=== PATIENT | female | born 1950 | race Caucasian/White ===

== ENCOUNTER 2017-05-21 16:20 | Inpatient (IN) ==
[2017-05-21] MEDS ORDERED: SODIUM CHLORIDE 0.9% 500 ML IV STA (16:54)
[2017-05-21] MEDS ORDERED: KETOROLAC 30 MG/1 ML VIAL IV STA (16:55)
[2017-05-21] MEDS ORDERED: KETOROLAC 30 MG/1 ML VIAL ONE (17:23)
[2017-05-21 17:54] LABS: Basophils # 0.1 10*3/uL (0.0-0.2); Basophils % 0.4 % (0.0-0.8); Eosinophils # 0.1 10*3/uL (0.0-0.87); Eosinophils % 0.4 % (0.00-10.9); Hematocrit 37.8 VOL% (35.7-47.0); Hemoglobin 12.6 GM/DL (12.0-16.0); Immature Granulocytes % 0.6 %; Immature Granulocytes Absolute 0.08 #; Lymphocytes # 2.1 10*3/uL (1.4-4.0); Lymphocytes % 14.5 % (21.3-54.2); Mean Corpuscular HGB Conc 33.3 GM/DL (32-36); Mean Corpuscular Hemoglobin 30 PG (27-34); Mean Corpuscular Volume 89.6 FL (87-102); Mean Platelet Volume 8.2 FL (9.6-12.0); Monocytes % 7.1 % (1.7-12.7); Platelet Count 395 T/CUMM (130-400); Red Blood Count 4.22 MC/CUMM (3.8-5.5); Red Cell Distribution Width 12.7 % (9.3-17.3); White Blood Count 14.2 T/CUMM (4-12)
[2017-05-21 18:10] LABS: Apearance,Urine CLOUDY (Clear); Bilirubin,Urine Negative (Negative); Blood, Urine Large mg/dL (Negative); Glucose,Urine (UA) Negative (Negative); Ketones,Urine 20 mg/dL (Negative); Nitrite,Urine Negative (Negative); Protein,Urine Negative; RBC,Urine 40 /HPF (0-4); Squamous Epithelial Cell,Urine Occasional /HPF (0-10); Urine Color Yellow (Yellow); Urine Specific Gravity 1.006 (1.001-1.035); Urine Urobilinogen < 2.0 EU/DL (0.2-1.0); WBC,Urine 316 /HPF (0-6)
[2017-05-21 18:11] LABS: PT Patient Result 10.4 SECS; Partial Thromboplastin Time 26.8 SECS (0-40)
[2017-05-21 18:13] LABS: Alanine Aminotransferase 18 U/L (13-56); Albumin 3.3 G/DL (3.4-5.0); Alkaline Phosphatase 108 U/L (45-117); Aspartate Amino Transferase 10 U/L (0-37); Bilirubin,Total < 0.39 MG/DL (0.2-1.0); Blood Urea Nitrogen 16 MG/DL (7-18); Calcium 9.5 MG/DL (8.5-10.1); Glucose 96 MG/DL (74-106); Osmolality,Calculated 279.4 MOS/KG (273-304); Potassium 3.3 MMOL/L (3.5-5.1); Sodium 140 MMOL/L (136-145); Total Protein 7.4 G/DL (6.4-8.3)
[2017-05-21 18:14] LABS: Barbiturates Screen,Urine Negative (Negative); Benzodiazepines Screen,Urine Negative (Negative); Cannabinoid Screen,Urine Negative (Negative); Opiate Screen,Urine Negative (Negative); Phencyclidine Screen,Urine Negative (Negative)
[2017-05-21] MEDS ORDERED: LEVOFLOXACIN INJ 750 MG in PREMIX 1 EACH IV STA (18:31)
[2017-05-21] MEDS ORDERED: PHENAZOPYRIDINE 95 MG TABLET PO STA (18:32)
[2017-05-21] MEDS ORDERED: POTASSIUM BICARB EFFERVESCENT 25 MEQ TABLET PO ONE ×2 (18:34→20:43)
[2017-05-21] MEDS ORDERED: PHENAZOPYRIDINE 95 MG TABLET ONE (19:04)
[2017-05-21] MEDS ORDERED: LEVOFLOXACIN INJ 150 ML IV ONE (19:04)
[2017-05-21] MEDS ORDERED: ONDANSETRON 4 MG/2 ML VIAL ONE (19:06)
[2017-05-21] MEDS ORDERED: ONDANSETRON 4 MG/2 ML VIAL IV STA (19:09)
[2017-05-21] MEDS ORDERED: metroNIDAZOLE INJ 500 MG in PREMIX 1 EACH IV STA (20:58)
[2017-05-21] MEDS ORDERED: metroNIDAZOLE 500 MG/100 ML PREMIX IV ONE (21:10)
[2017-05-21] MEDS ORDERED: MORPHINE 2 MG/1 ML SYRINGE IV PRN (21:22)
[2017-05-21] MEDS ORDERED: MAGNESIUM SULF RIDER 2 GM in PREMIX 1 EACH IV PRN (21:22)
[2017-05-21] MEDS ORDERED: MAGNESIUM SULF RIDER 4 GM in PREMIX 1 EACH IV PRN (21:22)
[2017-05-21] MEDS ORDERED: SODIUM CHLORIDE 0.9% 1,000 ML IV SCH (21:30)
[2017-05-21] MEDS: NICOTINE 14 MG/24 HR PATCH TRANSDERM SCH (23:21)
[2017-05-21] MEDS: CIPROFLOXACIN INJ 400 MG in PREMIX 1 EACH IV SCH (23:22)
[2017-05-21] MEDS: DEXT 5% NACL 0.45% KCL 10 MEQ 10 MEQ/1,000 ML BAG IV SCH (23:23)
[2017-05-22 06:55] LABS: Basophils % 0.3 % (0.0-0.8); Eosinophils # 0.1 10*3/uL (0.0-0.87); Eosinophils % 1.1 % (0.00-10.9); Hematocrit 34.4 VOL% (35.7-47.0); Hemoglobin 11.6 GM/DL (12.0-16.0); Immature Granulocytes % 0.5 %; Immature Granulocytes Absolute 0.05 #; Lymphocytes # 1.4 10*3/uL (1.4-4.0); Lymphocytes % 15.4 % (21.3-54.2); Mean Corpuscular HGB Conc 33.7 GM/DL (32-36); Mean Corpuscular Hemoglobin 30 PG (27-34); Mean Corpuscular Volume 90.1 FL (87-102); Mean Platelet Volume 8.7 FL (9.6-12.0); Monocytes # 0.9 10*3/uL (0.11-0.8); Monocytes % 9.3 % (1.7-12.7); Neutrophils # 6.8 10*3/uL (1.4-7.4); Neutrophils % 73.4 % (38.7-73.9); Platelet Count 382 T/CUMM (130-400); Red Blood Count 3.82 MC/CUMM (3.8-5.5); White Blood Count 9.3 T/CUMM (4-12)
[2017-05-22] MEDS: metroNIDAZOLE INJ 500 MG in PREMIX 1 EACH IV SCH ×3 (06:59→23:32)
[2017-05-22 07:21] LABS: Calcium 8.7 MG/DL (8.5-10.1); Osmolality,Calculated 285.8 MOS/KG (273-304)
[2017-05-22] MEDS: DEXT 5% NACL 0.45% KCL 10 MEQ 10 MEQ/1,000 ML BAG IV SCH ×2 (08:32→14:08)
[2017-05-22] MEDS: CIPROFLOXACIN INJ 400 MG in PREMIX 1 EACH IV SCH ×2 (08:35→20:40)
[2017-05-22] MEDS: ONDANSETRON 4 MG/2 ML VIAL IV PRN (08:40)
[2017-05-22] MEDS: NICOTINE 14 MG/24 HR PATCH TRANSDERM SCH (08:42)
[2017-05-22] MEDS ORDERED: KETOROLAC 15 MG/1 ML VIAL IV PRN (13:32)
[2017-05-22] MEDS ORDERED: HYDROmorphone 2 MG/1 ML VIAL IV PRN ×2 (13:32)
[2017-05-22] MEDS ORDERED: ALUMINUM/MAGNES/SIMETH MAX STR 30 ML UDCUP PO PRN (18:48)
[2017-05-23] MEDS: ONDANSETRON 4 MG/2 ML VIAL IV PRN (02:21)
[2017-05-23] MEDS: DEXT 5% NACL 0.45% KCL 10 MEQ 10 MEQ/1,000 ML BAG IV SCH ×3 (02:22→13:05)
[2017-05-23] MEDS: metroNIDAZOLE INJ 500 MG in PREMIX 1 EACH IV SCH ×3 (05:43→22:33)
[2017-05-23] MEDS: CIPROFLOXACIN INJ 400 MG in PREMIX 1 EACH IV SCH ×2 (08:32→20:36)
[2017-05-23] MEDS: NICOTINE 14 MG/24 HR PATCH TRANSDERM SCH (08:32)
[2017-05-23] MEDS: NYSTATIN 500,000 UNIT/5 ML UDCUP SWISH/SWAL SCH ×3 (12:25→20:36)
[2017-05-23] MEDS: LACTOBACILLUS ACIDOPHILUS/BULGARICUS CAPLET PO SCH (20:36)
[2017-05-23] MEDS ORDERED: diphenhydrAMINE 50 MG/1 ML VIAL IV PRN (22:58)
[2017-05-24] MEDS: metroNIDAZOLE INJ 500 MG in PREMIX 1 EACH IV SCH ×3 (06:11→23:20)
[2017-05-24] MEDS: DEXT 5% NACL 0.45% KCL 10 MEQ 10 MEQ/1,000 ML BAG IV SCH ×4 (06:13→20:47)
[2017-05-24] MEDS: CIPROFLOXACIN INJ 400 MG in PREMIX 1 EACH IV SCH ×2 (09:04→20:50)
[2017-05-24] MEDS: NYSTATIN 500,000 UNIT/5 ML UDCUP SWISH/SWAL SCH ×4 (09:05→20:49)
[2017-05-24] MEDS: NICOTINE 14 MG/24 HR PATCH TRANSDERM SCH (09:05)
[2017-05-24] MEDS: LACTOBACILLUS ACIDOPHILUS/BULGARICUS CAPLET PO SCH ×2 (09:05→20:49)
[2017-05-24] MEDS: PANTOPRAZOLE 40 MG TABLET PO SCH (09:05)
[2017-05-24] MEDS: ONDANSETRON 4 MG/2 ML VIAL IV PRN (15:01)
[2017-05-25 05:42] LABS: Basophils # 0.1 10*3/uL (0.0-0.2); Basophils % 0.6 % (0.0-0.8); Eosinophils # 0.1 10*3/uL (0.0-0.87); Eosinophils % 0.8 % (0.00-10.9); Hematocrit 29.9 VOL% (35.7-47.0); Hemoglobin 9.7 GM/DL (12.0-16.0); Immature Granulocytes % 0.5 %; Immature Granulocytes Absolute 0.04 #; Lymphocytes # 1.8 10*3/uL (1.4-4.0); Lymphocytes % 21.1 % (21.3-54.2); Mean Corpuscular HGB Conc 32.4 GM/DL (32-36); Mean Corpuscular Hemoglobin 30 PG (27-34); Mean Corpuscular Volume 90.9 FL (87-102); Mean Platelet Volume 8.7 FL (9.6-12.0); Monocytes # 0.8 10*3/uL (0.11-0.8); Monocytes % 9.3 % (1.7-12.7); Neutrophils # 5.7 10*3/uL (1.4-7.4); Neutrophils % 67.7 % (38.7-73.9); Platelet Count 327 T/CUMM (130-400); Red Blood Count 3.29 MC/CUMM (3.8-5.5); Red Cell Distribution Width 12.7 % (9.3-17.3); White Blood Count 8.4 T/CUMM (4-12)
[2017-05-25 06:13] LABS: Calcium 7.9 MG/DL (8.5-10.1); Magnesium 2.1 MG/DL (1.8-2.4); Osmolality,Calculated 285.8 MOS/KG (273-304); Potassium 3.6 MMOL/L (3.5-5.1)
[2017-05-25] MEDS: metroNIDAZOLE INJ 500 MG in PREMIX 1 EACH IV SCH (06:14)
[2017-05-25] MEDS: DEXT 5% NACL 0.45% KCL 10 MEQ 10 MEQ/1,000 ML BAG IV SCH (07:26)
[2017-05-25] MEDS: CIPROFLOXACIN INJ 400 MG in PREMIX 1 EACH IV SCH (10:25)
[2017-05-25] MEDS: PANTOPRAZOLE 40 MG TABLET PO SCH (10:26)
[2017-05-25] MEDS: NICOTINE 14 MG/24 HR PATCH TRANSDERM SCH (10:26)
[2017-05-25] MEDS: NYSTATIN 500,000 UNIT/5 ML UDCUP SWISH/SWAL SCH ×4 (10:26→21:09)
[2017-05-25] MEDS: LACTOBACILLUS ACIDOPHILUS/BULGARICUS CAPLET PO SCH ×2 (10:26→21:09)
[2017-05-25] MEDS ORDERED: oxyCODONE/ACETAMINOPHEN 5-325 MG TABLET PO PRN (10:58)
[2017-05-25] MEDS: metroNIDAZOLE 500 MG TABLET PO SCH ×2 (14:43→21:09)
[2017-05-25] MEDS: DOCUSATE SODIUM 100 MG CAPSULE PO SCH ×2 (15:13→21:09)
[2017-05-25 16:37] LABS: Apearance,Urine Slightly Hazy (Clear); Bacteria,Urine Occasional /HPF (Few); Bilirubin,Urine Negative (Negative); Blood, Urine Moderate mg/dL (Negative); Glucose,Urine (UA) Negative (Negative); Ketones,Urine Negative (Negative); Nitrite,Urine Negative (Negative); Protein,Urine Negative; RBC,Urine 9 /HPF (0-4); Squamous Epithelial Cell,Urine Occasional /HPF (0-10); Urine Color Yellow (Yellow); Urine Specific Gravity 1.004 (1.001-1.035); Urine Urobilinogen < 2.0 EU/DL (0.2-1.0); WBC,Urine 170 /HPF (0-6)
[2017-05-25] MEDS ORDERED: PRAVASTATIN 40 MG TABLET PO SCH (21:00)
[2017-05-25] MEDS: CIPROFLOXACIN 500 MG TABLET PO SCH (21:11)
[2017-05-26] MEDS: metroNIDAZOLE 500 MG TABLET PO SCH ×2 (08:33→15:20)
[2017-05-26] MEDS: NYSTATIN 500,000 UNIT/5 ML UDCUP SWISH/SWAL SCH ×2 (08:33→15:20)
[2017-05-26] MEDS: CIPROFLOXACIN 500 MG TABLET PO SCH (08:33)
[2017-05-26] MEDS: NICOTINE 14 MG/24 HR PATCH TRANSDERM SCH (08:33)
[2017-05-26] MEDS: PANTOPRAZOLE 40 MG TABLET PO SCH (08:33)
[2017-05-26] MEDS: DOCUSATE SODIUM 100 MG CAPSULE PO SCH (08:33)
[2017-05-26] MEDS: LACTOBACILLUS ACIDOPHILUS/BULGARICUS CAPLET PO SCH (08:33)
[2017-05-26 11:05] VITALS: BP 140/68
== END 2017-05-26 15:57 | disposition home or self-care (01) | DRG 392 ==
LOC: N.ED 16:20 → N.EDINP 21:26 → N.5E 21:41
PROVIDERS: ADMIT Hospitalist; ATTEND Hospitalist

== ENCOUNTER 2017-07-01 05:55 | Inpatient (IN) ==
[2017-07-01] MEDS ORDERED: cefOXitin 2,000 MG in SYRINGE 1 EACH IV ONE (06:00)
[2017-07-01] MEDS ORDERED: ALVIMOPAN 12 MG CAPSULE PO ONE (06:00)
[2017-07-01] MEDS ORDERED: ERTAPENEM 1,000 MG in SODIUM CHLORIDE 0.9% 50 ML IV ONE (06:00)
[2017-07-01] MEDS ORDERED: ERTAPENEM 1,000 MG VIAL ONE (06:03)
[2017-07-01] MEDS ORDERED: ALVIMOPAN 12 MG CAPSULE ONE ×2 (06:03→06:04)
[2017-07-01] MEDS ORDERED: SCOPOLAMINE 1.5 MG PATCH TRANSDERM ONE ×2 (06:30→06:32)
[2017-07-01] MEDS ORDERED: LACTATED RINGERS 1,000 ML IV SCH (07:00)
[2017-07-01] MEDS ORDERED: TISSUE ADHESIVE 1 EACH APPLICATOR TOP ONE (11:31)
[2017-07-01] MEDS ORDERED: fentaNYL 100 MCG/2 ML VIAL ONE (12:03)
[2017-07-01] MEDS ORDERED: PROPOFOL 200 MG/20 ML VIAL IV ONE (12:03)
[2017-07-01] MEDS ORDERED: SEVOFLURANE 1 UNIT/15 MINUTE INH ONE (12:03)
[2017-07-01] MEDS ORDERED: ONDANSETRON 4 MG/2 ML VIAL ONE (12:04)
[2017-07-01] MEDS ORDERED: GLYCOPYRROLATE 0.4 MG/2 ML VIAL ONE (12:04)
[2017-07-01] MEDS ORDERED: MIDAZOLAM 2 MG/2 ML VIAL ONE (12:04)
[2017-07-01] MEDS ORDERED: NEOSTIGMINE 10 MG/10 ML VIAL ONE (12:04)
[2017-07-01] MEDS ORDERED: KETOROLAC 30 MG/1 ML VIAL ONE (12:04)
[2017-07-01] MEDS ORDERED: DEXAMETHASONE 10 MG/1 ML VIAL ONE (12:04)
[2017-07-01] MEDS ORDERED: ROCURONIUM 100 MG/10 ML VIAL IV ONE (12:05)
[2017-07-01] MEDS ORDERED: ACETAMINOPHEN 1,000 MG/100 ML VIAL IV ONE (12:05)
[2017-07-01] MEDS ORDERED: LACTATED RINGERS 1,000 ML IV ONE (12:05)
[2017-07-01 12:06] LABS: Apearance,Urine Slightly Hazy (Clear); Bacteria,Urine Occasional /HPF (Few); Bilirubin,Urine Negative (Negative); Blood, Urine Large mg/dL (Negative); Glucose,Urine (UA) Negative (Negative); Ketones,Urine Negative (Negative); Mucus,Urine Occasional /LPF (Occasional); Nitrite,Urine Negative (Negative); Protein,Urine Negative; RBC,Urine 137 /HPF (0-4); Squamous Epithelial Cell,Urine Occasional /HPF (0-10); Urine Color Yellow (Yellow); Urine Urobilinogen < 2.0 EU/DL (0.2-1.0); WBC,Urine 8 /HPF (0-6)
[2017-07-01] MEDS ORDERED: BUPIVACAINE 0.25% /EPI 10 ML VIAL ONE ×2 (12:13→12:14)
[2017-07-01] MEDS ORDERED: ONDANSETRON 4 MG/2 ML VIAL IV PRN (13:19)
[2017-07-01] MEDS ORDERED: HYDROmorphone 2 MG/1 ML VIAL IV PRN (13:19)
[2017-07-01] MEDS ORDERED: PROMETHAZINE 25 MG/1 ML VIAL IM PRN (13:19)
[2017-07-01] MEDS ORDERED: MORPHINE 2 MG/1 ML SYRINGE IV PRN (14:55)
[2017-07-01] MEDS ORDERED: NALOXONE 0.4 MG/ML VIAL IV PRN (17:08)
[2017-07-01] MEDS: KETOROLAC 15 MG/1 ML VIAL IV SCH (18:37)
[2017-07-01] MEDS: MORPHINE PCA 30 MG/30 ML SYRINGE IV SCH (19:38)
[2017-07-01] MEDS: ALVIMOPAN 12 MG CAPSULE PO SCH (21:49)
[2017-07-01] MEDS: PRAVASTATIN 40 MG TABLET PO SCH (21:49)
[2017-07-02] MEDS: KETOROLAC 15 MG/1 ML VIAL IV SCH ×5 (01:00→23:31)
[2017-07-02] MEDS: LACTATED RINGERS 1,000 ML IV SCH ×5 (03:31→23:31)
[2017-07-02 06:17] LABS: Basophils % 0.1 % (0.0-0.8); Hematocrit 32.3 VOL% (35.7-47.0); Hemoglobin 10.8 GM/DL (12.0-16.0); Immature Granulocytes % 0.4 %; Immature Granulocytes Absolute 0.04 #; Lymphocytes # 1.2 10*3/uL (1.4-4.0); Mean Corpuscular HGB Conc 33.4 GM/DL (32-36); Mean Corpuscular Hemoglobin 30 PG (27-34); Monocytes # 1.1 10*3/uL (0.11-0.8); Monocytes % 10.2 % (1.7-12.7); Neutrophils # 8.8 10*3/uL (1.4-7.4); Neutrophils % 78.3 % (38.7-73.9); Platelet Count 220 T/CUMM (130-400); Red Blood Count 3.59 MC/CUMM (3.8-5.5); Red Cell Distribution Width 14.2 % (9.3-17.3); White Blood Count 11.2 T/CUMM (4-12)
[2017-07-02 06:42] LABS: Osmolality,Calculated 283.3 MOS/KG (273-304); Potassium 3.6 MMOL/L (3.5-5.1)
[2017-07-02] MEDS: ALVIMOPAN 12 MG CAPSULE PO SCH ×2 (08:45→21:02)
[2017-07-02] MEDS: ENOXAPARIN 40 MG/0.4 ML SYRINGE SUBCUT SCH (08:45)
[2017-07-02] MEDS: PANTOPRAZOLE 40 MG TABLET PO SCH (08:45)
[2017-07-02] MEDS: MORPHINE PCA 30 MG/30 ML SYRINGE IV SCH (18:43)
[2017-07-02] MEDS: PRAVASTATIN 40 MG TABLET PO SCH (21:02)
[2017-07-03] MEDS: KETOROLAC 15 MG/1 ML VIAL IV SCH (05:11)
[2017-07-03] MEDS: LACTATED RINGERS 1,000 ML IV SCH (05:12)
[2017-07-03 06:00] LABS: Basophils % 0.1 % (0.0-0.8); Eosinophils % 0.2 % (0.00-10.9); Hematocrit 29.3 VOL% (35.7-47.0); Hemoglobin 9.7 GM/DL (12.0-16.0); Immature Granulocytes % 0.4 %; Immature Granulocytes Absolute 0.03 #; Lymphocytes # 1.4 10*3/uL (1.4-4.0); Lymphocytes % 17.3 % (21.3-54.2); Mean Corpuscular HGB Conc 33.1 GM/DL (32-36); Mean Corpuscular Hemoglobin 30 PG (27-34); Mean Platelet Volume 9.2 FL (9.6-12.0); Neutrophils # 5.8 10*3/uL (1.4-7.4); Platelet Count 202 T/CUMM (130-400); Red Blood Count 3.22 MC/CUMM (3.8-5.5); Red Cell Distribution Width 14.3 % (9.3-17.3); White Blood Count 8.3 T/CUMM (4-12)
[2017-07-03 06:30] LABS: Calcium 8.3 MG/DL (8.5-10.1); Magnesium 1.9 MG/DL (1.8-2.4); Potassium 3.7 MMOL/L (3.5-5.1)
[2017-07-03] MEDS: ALVIMOPAN 12 MG CAPSULE PO SCH ×2 (08:45→21:22)
[2017-07-03] MEDS: ENOXAPARIN 40 MG/0.4 ML SYRINGE SUBCUT SCH (08:45)
[2017-07-03] MEDS: PANTOPRAZOLE 40 MG TABLET PO SCH (08:45)
[2017-07-03] MEDS: MORPHINE 2 MG/1 ML SYRINGE IV PRN ×3 (11:51→21:25)
[2017-07-03] MEDS: PRAVASTATIN 40 MG TABLET PO SCH (21:22)
[2017-07-04 05:51] LABS: Basophils % 0.3 % (0.0-0.8); Eosinophils # 0.1 10*3/uL (0.0-0.87); Eosinophils % 0.9 % (0.00-10.9); Hematocrit 30.2 VOL% (35.7-47.0); Hemoglobin 9.8 GM/DL (12.0-16.0); Immature Granulocytes % 0.5 %; Immature Granulocytes Absolute 0.04 #; Lymphocytes # 1.7 10*3/uL (1.4-4.0); Lymphocytes % 21.4 % (21.3-54.2); Mean Corpuscular HGB Conc 32.5 GM/DL (32-36); Mean Corpuscular Hemoglobin 30 PG (27-34); Mean Corpuscular Volume 93.2 FL (87-102); Mean Platelet Volume 9.5 FL (9.6-12.0); Monocytes # 0.8 10*3/uL (0.11-0.8); Monocytes % 9.9 % (1.7-12.7); Neutrophils # 5.4 10*3/uL (1.4-7.4); Platelet Count 208 T/CUMM (130-400); Red Blood Count 3.24 MC/CUMM (3.8-5.5); Red Cell Distribution Width 14.1 % (9.3-17.3)
[2017-07-04 06:20] LABS: Calcium 8.4 MG/DL (8.5-10.1); Magnesium 1.9 MG/DL (1.8-2.4); Osmolality,Calculated 287.7 MOS/KG (273-304)
[2017-07-04] MEDS: ALVIMOPAN 12 MG CAPSULE PO SCH ×2 (09:24→20:42)
[2017-07-04] MEDS: PANTOPRAZOLE 40 MG TABLET PO SCH (09:24)
[2017-07-04] MEDS: KETOROLAC 15 MG/1 ML VIAL IV SCH ×3 (09:24→22:06)
[2017-07-04] MEDS: ENOXAPARIN 40 MG/0.4 ML SYRINGE SUBCUT SCH (09:24)
[2017-07-04] MEDS: MORPHINE 2 MG/1 ML SYRINGE IV PRN (17:00)
[2017-07-04] MEDS: PRAVASTATIN 40 MG TABLET PO SCH (20:42)
[2017-07-05] MEDS: KETOROLAC 15 MG/1 ML VIAL IV SCH ×2 (02:38→08:44)
[2017-07-05 05:03] LABS: Calcium 8.2 MG/DL (8.5-10.1); Osmolality,Calculated 290.4 MOS/KG (273-304); Potassium 3.8 MMOL/L (3.5-5.1)
[2017-07-05 07:44] VITALS: BP 125/63
[2017-07-05] MEDS: PANTOPRAZOLE 40 MG TABLET PO SCH (08:45)
[2017-07-05] MEDS: ENOXAPARIN 40 MG/0.4 ML SYRINGE SUBCUT SCH (08:45)
[2017-07-05] MEDS: ALVIMOPAN 12 MG CAPSULE PO SCH (08:45)
[2017-07-05] MEDS ORDERED: NICOTINE 21 MG/24 HR PATCH TRANSDERM SCH (09:00)
== END 2017-07-05 10:12 | disposition home or self-care (01) | DRG 330 ==
LOC: N.OR 05:55 → N.SDSINP 05:56 → N.3E 12:57 → N.SDSINP 07-02 11:54
PROVIDERS: ADMIT Surgery; ATTEND Surgery

== ENCOUNTER 2017-07-11 09:29 | Inpatient (IN) ==
[2017-07-11] MEDS ORDERED: ACETAMINOPHEN 325 MG TABLET PO PRN (12:07)
[2017-07-11] MEDS ORDERED: ONDANSETRON 4 MG/2 ML VIAL IV PRN (12:07)
[2017-07-11 12:45] LABS: Basophils % 0.1 % (0.0-0.8); Hematocrit 32.2 VOL% (35.7-47.0); Hemoglobin 10.4 GM/DL (12.0-16.0); Immature Granulocytes % 0.4 %; Immature Granulocytes Absolute 0.06 #; Lymphocytes # 0.9 10*3/uL (1.4-4.0); Lymphocytes % 6.8 % (21.3-54.2); Mean Corpuscular HGB Conc 32.3 GM/DL (32-36); Mean Corpuscular Hemoglobin 30 PG (27-34); Mean Corpuscular Volume 91.2 FL (87-102); Mean Platelet Volume 8.6 FL (9.6-12.0); Monocytes # 1.3 10*3/uL (0.11-0.8); Monocytes % 9.7 % (1.7-12.7); Neutrophils # 11.4 10*3/uL (1.4-7.4); Platelet Count 467 T/CUMM (130-400); Red Blood Count 3.53 MC/CUMM (3.8-5.5); Red Cell Distribution Width 14.6 % (9.3-17.3); White Blood Count 13.8 T/CUMM (4-12)
[2017-07-11] MEDS ORDERED: LACTATED RINGERS 1,000 ML IV ONE (12:47)
[2017-07-11 13:09] LABS: Calcium 8.4 MG/DL (8.5-10.1); Osmolality,Calculated 287.8 MOS/KG (273-304); Potassium 3.2 MMOL/L (3.5-5.1)
[2017-07-11] MEDS: LACTATED RINGERS 1,000 ML IV SCH ×2 (13:28→19:10)
[2017-07-11] MEDS ORDERED: POTASSIUM CHLORIDE RIDER 10 MEQ in PREMIX 1 EACH IV PRN (14:19)
[2017-07-11 16:08] LABS: Apearance,Urine CLEAR (Clear); Bilirubin,Urine Negative (Negative); Blood, Urine Large mg/dL (Negative); Glucose,Urine (UA) Negative (Negative); Ketones,Urine 20 mg/dL (Negative); Nitrite,Urine Negative (Negative); Protein,Urine Negative; RBC,Urine 15 /HPF (0-4); Squamous Epithelial Cell,Urine Occasional /HPF (0-10); Urine Color Yellow (Yellow); Urine Specific Gravity 1.008 (1.001-1.035); Urine Urobilinogen < 2.0 EU/DL (0.2-1.0); WBC,Urine 1 /HPF (0-6)
[2017-07-11] MEDS ORDERED: METOCLOPRAMIDE 10 MG/2 ML VIAL IV ONE (16:54)
[2017-07-11] MEDS ORDERED: FAMOTIDINE 20 MG/2 ML VIAL IV ONE (16:54)
[2017-07-11] MEDS ORDERED: METOCLOPRAMIDE 10 MG/2 ML VIAL ONE (16:57)
[2017-07-11] MEDS ORDERED: fentaNYL 100 MCG/2 ML VIAL ONE ×2 (16:58→18:10)
[2017-07-11] MEDS ORDERED: PROPOFOL 200 MG/20 ML VIAL IV ONE (16:58)
[2017-07-11] MEDS ORDERED: ONDANSETRON 4 MG/2 ML VIAL ONE (16:58)
[2017-07-11] MEDS ORDERED: ACETAMINOPHEN 1,000 MG/100 ML VIAL IV ONE (16:58)
[2017-07-11] MEDS ORDERED: DESFLURANE 1 UNIT/15 MINUTE INH ONE (16:58)
[2017-07-11] MEDS ORDERED: BUPIVACAINE 0.25% 50 ML VIAL ONE (16:58)
[2017-07-11] MEDS ORDERED: ROCURONIUM 100 MG/10 ML VIAL IV ONE (16:59)
[2017-07-11] MEDS ORDERED: SUCCINYLCHOLINE 200 MG/10 ML VIAL ONE (16:59)
[2017-07-11] MEDS ORDERED: SCOPOLAMINE 1.5 MG PATCH TRANSDERM ONE (17:26)
[2017-07-11] MEDS: MORPHINE 2 MG/1 ML SYRINGE IV SCH ×3 (18:04→20:37)
[2017-07-11] MEDS: PIPERACILLIN/TAZOBACTAM 3,375 MG in SODIUM CHLORIDE 0.9% 100 ML IV SCH ×2 (20:26→21:58)
[2017-07-11] MEDS: VANCOMYCIN INJ 1,000 MG in SODIUM CHLORIDE 0.9% 250 ML IV SCH (20:28)
[2017-07-11] MEDS ORDERED: POTASSIUM CHLORIDE INJ 60 MEQ in SODIUM CHLORIDE 0.9% 1,000 ML IV ONE (21:00)
[2017-07-11] MEDS: PRAVASTATIN 40 MG TABLET PO SCH (21:58)
[2017-07-12] MEDS: MORPHINE 2 MG/1 ML SYRINGE IV SCH ×6 (00:43→21:14)
[2017-07-12] MEDS: VANCOMYCIN INJ 1,000 MG in SODIUM CHLORIDE 0.9% 250 ML IV SCH ×2 (02:56→13:07)
[2017-07-12] MEDS: PIPERACILLIN/TAZOBACTAM 3,375 MG in SODIUM CHLORIDE 0.9% 100 ML IV SCH ×3 (05:10→20:38)
[2017-07-12 06:24] LABS: Basophils % 0.3 % (0.0-0.8); Eosinophils % 0.3 % (0.00-10.9); Hematocrit 26.6 VOL% (35.7-47.0); Hemoglobin 8.6 GM/DL (12.0-16.0); Immature Granulocytes % 0.7 %; Immature Granulocytes Absolute 0.07 #; Lymphocytes # 1.4 10*3/uL (1.4-4.0); Lymphocytes % 13.5 % (21.3-54.2); Mean Corpuscular HGB Conc 32.3 GM/DL (32-36); Mean Corpuscular Hemoglobin 30 PG (27-34); Mean Corpuscular Volume 91.7 FL (87-102); Mean Platelet Volume 8.8 FL (9.6-12.0); Monocytes # 0.9 10*3/uL (0.11-0.8); Neutrophils # 7.8 10*3/uL (1.4-7.4); Neutrophils % 76.2 % (38.7-73.9); Platelet Count 430 T/CUMM (130-400); Red Cell Distribution Width 14.8 % (9.3-17.3); White Blood Count 10.3 T/CUMM (4-12)
[2017-07-12 06:56] LABS: Magnesium 1.7 MG/DL (1.8-2.4); Osmolality,Calculated 283.8 MOS/KG (273-304); Potassium 3.4 MMOL/L (3.5-5.1)
[2017-07-12] MEDS: LACTATED RINGERS 1,000 ML IV SCH ×2 (07:40→12:48)
[2017-07-12] MEDS: PANTOPRAZOLE 40 MG TABLET PO SCH (08:10)
[2017-07-12] MEDS: POTASSIUM CHLORIDE 20 MEQ TABLET PO PRN ×4 (08:10→20:38)
[2017-07-12] MEDS ORDERED: NON-FORMULARY MEDICATION (Omeprazole [Omeprazole] 40 MG) PO SCH (09:00)
[2017-07-12] MEDS: ENOXAPARIN 40 MG/0.4 ML SYRINGE SUBCUT SCH (20:38)
[2017-07-12] MEDS: PRAVASTATIN 40 MG TABLET PO SCH (20:38)
[2017-07-13] MEDS: MORPHINE 2 MG/1 ML SYRINGE IV SCH ×6 (01:07→20:33)
[2017-07-13] MEDS: VANCOMYCIN INJ 1,000 MG in SODIUM CHLORIDE 0.9% 250 ML IV SCH ×2 (01:39→15:28)
[2017-07-13] MEDS: PIPERACILLIN/TAZOBACTAM 3,375 MG in SODIUM CHLORIDE 0.9% 100 ML IV SCH ×3 (05:07→21:29)
[2017-07-13 06:16] LABS: Basophils % 0.4 % (0.0-0.8); Eosinophils # 0.1 10*3/uL (0.0-0.87); Eosinophils % 1.2 % (0.00-10.9); Hematocrit 27.6 VOL% (35.7-47.0); Hemoglobin 8.7 GM/DL (12.0-16.0); Immature Granulocytes % 0.5 %; Immature Granulocytes Absolute 0.04 #; Lymphocytes # 1.3 10*3/uL (1.4-4.0); Lymphocytes % 17.6 % (21.3-54.2); Mean Corpuscular HGB Conc 31.5 GM/DL (32-36); Mean Corpuscular Hemoglobin 29 PG (27-34); Mean Corpuscular Volume 92.9 FL (87-102); Mean Platelet Volume 8.8 FL (9.6-12.0); Monocytes # 0.7 10*3/uL (0.11-0.8); Monocytes % 9.9 % (1.7-12.7); Neutrophils # 5.2 10*3/uL (1.4-7.4); Neutrophils % 70.4 % (38.7-73.9); Platelet Count 439 T/CUMM (130-400); Red Blood Count 2.97 MC/CUMM (3.8-5.5); Red Cell Distribution Width 15.1 % (9.3-17.3); White Blood Count 7.4 T/CUMM (4-12)
[2017-07-13] MEDS: PANTOPRAZOLE 40 MG TABLET PO SCH (08:03)
[2017-07-13] MEDS: NYSTATIN 500,000 UNIT/5 ML UDCUP SWISH/SWAL SCH ×2 (16:14→21:25)
[2017-07-13] MEDS: ENOXAPARIN 40 MG/0.4 ML SYRINGE SUBCUT SCH (21:24)
[2017-07-13] MEDS: PRAVASTATIN 40 MG TABLET PO SCH (21:25)
[2017-07-14] MEDS: VANCOMYCIN INJ 1,000 MG in SODIUM CHLORIDE 0.9% 250 ML IV SCH ×2 (03:07→14:27)
[2017-07-14] MEDS: MORPHINE 2 MG/1 ML SYRINGE IV SCH ×3 (04:35→12:34)
[2017-07-14] MEDS: PIPERACILLIN/TAZOBACTAM 3,375 MG in SODIUM CHLORIDE 0.9% 100 ML IV SCH ×2 (06:07→14:27)
[2017-07-14] MEDS: PANTOPRAZOLE 40 MG TABLET PO SCH (09:50)
[2017-07-14] MEDS: NYSTATIN 500,000 UNIT/5 ML UDCUP SWISH/SWAL SCH ×2 (09:50→14:26)
[2017-07-14 11:51] VITALS: BP 136/95
== END 2017-07-14 14:12 | disposition home health service (06) | DRG 863 ==
LOC: N.3E 11:31
PROVIDERS: ADMIT Surgery; ATTEND Surgery